=== PATIENT | male | born 1985 | race Caucasian/White ===

== ENCOUNTER 2021-08-30 20:17 | Emergency (ER) | payer BC ==
[~2021-08-30] VITALS: Ht 200.7 cm; Wt 127.3 kg
[2021-08-30 20:24] VITALS: TEMP 98.7
[2021-08-30 20:44] LABS: BASO # 0.1 K/mm3 (0.0-0.2); BASO % 0.6 % (0.0-2.0); EOS # 0.3 K/mm3 (0.0-0.7); EOS % 2.1 % (0.0-4.0); GRAN # 9.7 K/mm3 (1.4-6.5); GRAN % 76.6 % (42.2-75.2); HEMATOCRIT 42.4 % (42.0-52.0); HEMOGLOBIN 14.5 g/dl (13.5-18.0); LYMPH # 1.7 K/mm3 (1.2-3.4); LYMPH % 13.8 % (20.0-51.0); MEAN CELL VOLUME 83 fl (80.0-100.0); MEAN CORPUSCULAR HEMOGLOBIN 28 pg (27-31); MEAN CORPUSCULAR HGB CONC 34 g/dl (33.0-37.0); MEAN PLATELET VOLUME 10.3 fl (7.4-10.4); MONO # 0.8 K/mm3 (0.1-0.6); MONO % 6.4 % (1.7-9.3); PLATELET COUNT 285 K/mm3 (130-400); RED BLOOD COUNT 5.14 M/mm3 (4.20-5.60); REDCELL DISTRIBUTION WIDTH-CV 12.2 % (11.5-14.5)
[2021-08-30 21:01] LABS: ALBUMIN 4.8 gm/dL (3.5-5.0); BILIRUBIN,TOTAL 0.4 mg/dL (0.2-1.2); C-REACTIVE PROTEIN 0.06 mg/dL (0.00-0.50); CALCIUM 9.8 mg/dL (8.4-10.2); CREATININE, serum 1.36 mg/dL (0.72-1.25); TOTAL PROTEIN 7.8 gm/dL (6.2-8.1)
[2021-08-30 23:20] LABS: COLLECTION METHOD CLEAN CATCH
[2021-08-30 23:38] LABS: MUCOUS Present (NOT PRESENT); PH 5 (5-8); SQUAMOUS EPITHELIAL None Seen /hpf (0-10); URINE APPEARANCE Clear (CLEAR/HAZY); URINE BACTERIA Rare (NONE SEEN); URINE BILIRUBIN Negative (NEGATIVE); URINE BLOOD Negative (NEGATIVE); URINE COLOR Yellow (YELLOW); URINE GLUCOSE 2+ (NEGATIVE); URINE KETONE Trace (NEGATIVE); URINE LEUKOCYTE ESTERASE Negative (NEGATIVE); URINE NITRATE Negative (NEGATIVE); URINE PROTEIN(semi-quant) Negative (NEGATIVE); URINE RBC None Seen /hpf (0-2); URINE UROBILINOGEN Negative (NEGATIVE)
[2021-08-31 00:17] VITALS: BP 132/78; PULSE 76
== END 2021-08-31 00:17 | disposition home or self-care (01) ==
LOC: COL.ER 20:17
PROVIDERS: Physician Assistant
DX: R10.11 Right upper quadrant pain (principal); E10.9 Type 1 diabetes mellitus without complications; I10 Essential (primary) hypertension
CPT/HCPCS: J1885; J2270; J7030; Q9967